=== PATIENT | male | born 1985 | race Caucasian/White ===

== ENCOUNTER 2022-07-14 08:56 | Inpatient (IN) | payer MEDICAID, SELFPAY ==
[2022-07-14] VITALS (88 sets, daily range): BP systolic 87–145; BP diastolic 25–81; PULSE 79–118; RESP 6–31; TEMP 36.4–37.2; O2SAT 95–100; BMI 21.9
--- NOTE | 2022-07-14 09:20 | CTR_ITS ---
PROCEDURE INFORMATION: Exam: CT Abdomen And Pelvis With Contrast Exam date and time: 07/14/2022 9:52 AM Age: 36 years old Clinical indication: Abdominal pain; Patient HX: Gi bleed; Additional info: Abd pain TECHNIQUE: Imaging protocol: Computed tomography of the abdomen and pelvis with contrast. Total images: 700 Radiation optimization: All CT scans at this facility use at least one of these dose optimization techniques: automated exposure control; mA and/or kV adjustment per patient size (includes targeted exams where dose is matched to clinical indication); or iterative reconstruction. Contrast material: OMNI 350; Contrast volume: 100 ml; Contrast route: INTRAVENOUS (IV); COMPARISON: No relevant prior studies available. RADIATION DOSE METRICS: Total DLP (mGy-cm): 368.83 FINDINGS: Lungs: Benign granulomatous disease of the lung is noted. Liver: Normal. No mass. Gallbladder and bile ducts: Normal. No calcified stones. No ductal dilation. Pancreas: Normal. No ductal dilation. Spleen: Normal. No splenomegaly. Adrenal glands: Normal. No mass. Kidneys and ureters: 4 mm low-density focus in the left kidney is too small to characterize but statistically favors a benign process (no further follow-up needed). Stomach and bowel: Fatty infiltration of the wall of the distal ileum is suspicious for prior recurrent/chronic inflammation. No convincing acute inflammatory process of the distal ileum. Prior Crohn's disease is conceivable. Questionable mild thickening of wall of transverse colon versus incomplete distension may represent a mild colitis either infectious or inflammatory. Appendix: No evidence of appendicitis. Intraperitoneal space: Unremarkable. No free air. No significant fluid collection. Vasculature: Incidental venous phlebolith noted. Lymph nodes: Unremarkable. No enlarged lymph nodes. Urinary bladder: Unremarkable as visualized. Reproductive: Unremarkable as visualized. Bones/joints: Intramedullary chente within the right femur partially visualized. Old right rib fracture evident. Soft tissues: Unremarkable. CT/CT abdomen pelvis w con* [id number] IMPRESSION: 1. No active GI bleed. 2. Fatty infiltration of the wall of the distal ileum is suspicious for prior recurrent/chronic inflammation. No convincing acute inflammatory process of the distal ileum. Prior Crohn's disease is conceivable. 3. Questionable mild thickening of wall of transverse colon versus incomplete distension may represent a mild colitis either infectious or inflammatory.
--- NOTE | 2022-07-14 09:22 | W.ED.GIBLEED ---
HPI - GI Bleed General: Chief complaint: GI Bleed Stated complaint: vomiting blood, rectal bleeding Time Seen by Provider: 07/14/22 09:19 Source: patient Mode of arrival: ambulatory History of Present Illness: 36-year-old male presents emergency room complaint lightheadedness dizziness generally not feeling well for the last 2 days he has had melena and increasing hematemesis this morning. He is a known heavy drinker he denies any history of esophageal varices denies any previous GI bleed. He is not on any anticoagulants. Reports having vomited some blood as well was very pale in appearance. Initial blood pressure 96/59 with fluids improved. He is mildly tachycardic. MD complaint: gross hematemesis and melena Onset (ago): hour(s) Pain Consistency: intermittent Severity: moderate Exacerbating factors: none Associated symptoms: Reports abdominal pain, malaise, nausea and poor appetite; Denies chills, easy bruising, epistaxis, fever(s), headache(s), other bleeding, rash, syncope, vomiting or weakness Review of Systems Const: Reports: malaise; Denies: fever(s) or chills ENMT: Denies: epistaxis Card: Denies: chest pain, palpitations, irregular heart rhythm, edema or syncope Resp: Denies: dyspnea, productive cough or non-productive cough GI: Reports: abdominal pain, nausea, hematemesis, change in stool character and melena; Denies: vomiting : Denies: flank pain, difficulty urinating, dysuria, urinary frequency or urinary urgency Musc: Denies: neck pain, back pain or extremity pain Skin/Breast: Denies: rash or pruritus Neuro: Denies: headache(s) Will/Lymph: Denies: easy bruising PFS ED PFSH: Medical History Alcoholism Amphetamine dependence Psychiatric care Social History Smoking and tobacco status: current every day smoker Alcohol intake: current Alcohol intake frequency: 3 or more drinks per day Physical Exam Const: COMMON NORMALS: no acute distress GENERAL APPEARANCE: cooperative and comfortable ORIENTATION/CONSCIOUSNESS: Yes awake, Yes oriented to person, Yes oriented to place and Yes oriented to time HENMT: COMMON NORMALS: normocephalic, atraumatic and hearing grossly normal bilaterally HEAD & SCALP: normocephalic and atraumatic Resp: COMMON NORMALS: normal respiratory effort, No retractions, No use of accessory muscles and clear to auscultation bilaterally AUSCULTATION: clear to auscultation bilaterally Cardio: COMMON NORMALS: regular rate, regular rhythm and No murmurs present (Cardio) RATE: regular rate RHYTHM: regular rhythm GI: COMMON NORMALS: Soft to palpation and No hepatosplenomegaly present AUSCULTATION: Yes normoactive bowel sounds PALPATION: Yes Soft to palpation, No Tenderness to palpation present (GI), No Guarding due to palpation present (GI) and Yes No hepatosplenomegaly present Extremity: COMMON NORMALS: normal to inspection, capillary refill normal, no clubbing, cyanosis or edema, no calf tenderness and no pedal edema Neuro: SENSORIUM/ORIENTATION: Yes oriented to person, Yes oriented to place and Yes oriented to time Skin: COMMON NORMALS: no rashes or lesions noted GENERAL SKIN EXAM: no rashes or lesions noted Procedures Central Line Placement Right SC: Time Out Performed: Yes Patient Placed on Monitor/Pulse Ox: Yes MD Prep: mask, gown and gloves Central Line Prep: Chlorhexidine scrub Local Anesthetic: lidocaine 1% Amount of anesthesia used (mL): 5 Ultrasound Used for Placement: Yes Central Line Lumen Inserted: triple Post Procedure: sutured in place Post Procedure X-Ray: tip of catheter in good position and no pneumothorax seen Patient Tolerated Procedure: well Complications: none Course Vital Signs: Vital signs: Vital Signs Temperature 97.6 F 07/14/22 14:10 Pulse Rate 89 07/14/22 14:10 Respiratory Rate 14 07/14/22 14:10 Blood Pressure 121/62 07/14/22 14:10 Pulse Oximetry 100 07/14/22 14:05 Oxygen Delivery Me thod 07/14/22 13:28 MDM - GI Bleed Medical Decision Making Back into theAcute upper GI bleed. Discussed with hospitalist also discussed with on-call surgery orders written. Dr. Boyer is attending. She asked me to place a central line before he could patient and place a date already taken him to the ICU went to the ICU Central line placed at the ICU under ultrasound guidance post placement film shows good positioning no sign of pneumothorax. Initial blood started in the emergency room. Further units to be given in ICU. Patient also received Protonix. Medical Records I reviewed the patient's medical records. Lab Data I reviewed the patient's lab results. : 07/14/22 09:15 07/14/22 09:15 Radiology Impressions Abdomen/Pelvis CT 07/14/22 09:20 IMPRESSION: 1. No active GI bleed. 2. Fatty infiltration of the wall of the distal ileum is suspicious for prior recurrent/chronic inflammation. No convincing acute inflammatory process of the distal ileum. Prior Crohn's disease is conceivable. 3. Questionable mild thickening of wall of transverse colon versus incomplete distension may represent a mild colitis either infectious or inflammatory. Laboratory Results WBC 22.8 10^3/uL (4.0-10.0) H 07/14/22 09:15 RBC 1.70 10^6/uL (4.1-5.3) L 07/14/22 09:15 Hgb 5.5 g/dL (11.7-16.6) L* 07/14/22 09:15 Hct 16.8 % (42.0-52.0) L* 07/14/22 09:15 MCV 98.8 fl (80-94) H 07/14/22 09:15 MCH 32.4 pg (28.0-34.0) 07/14/22 09:15 MCHC 32.7 g/dL (30.0-36.0) 07/14/22 09:15 RDW 13.2 % (12.1-15.1) 07/14/22 09:15 Plt Count 386 10^3/cmm (130-400) 07/14/22 09:15 MPV 10.3 fL (7.4-10.4) 07/14/22 09:15 Neut % (Auto) 68.0 % 07/14/22 09:15 Lymph % (Auto) 15.5 % 07/14/22 09:15 [place] % (Auto) 10.0 % 07/14/22 09:15 Eos % (Auto) 1.7 % 07/14/22 09:15 Baso % (Auto) 0.3 % 07/14/22 09:15 Neut # (Auto) 15.49 10^3/uL (1.8-7.7) H 07/14/22 09:15 Lymph # (Auto) 3.5 10^3/uL (0.8-4.8) 07/14/22 09:15 [place] # (Auto) 2.3 10^3/uL (0.2-0.9) H 07/14/22 09:15 Eos # (Auto) 0.4 10^3/uL (0.0-0.8) 07/14/22 09:15 Baso # (Auto) 0.1 10^3/uL (0.0-0.1) 07/14/22 09:15 Nucleated RBC % (auto) 0 % 07/14/22 09:15 Nucleated RBCs # 0.0 /100WBC 07/14/22 09:15 PT 14.50 SECONDS (12.1-14.9) 07/14/22 09:15 INR 1.10 (0.8-1.2) 07/14/22 09:15 APTT 27.4 SECONDS (23.9-36.7) 07/14/22 09:15 Sodium 130 mmol/L (136-145) L 07/14/22 09:15 Potassium 3.8 mmol/L (3.5-5.1) 07/14/22 09:15 Chloride 97 mmol/L (98-107) L 07/14/22 09:15 Carbon Dioxide 21 mmol/L (22-29) L 07/14/22 09:15 Anion Gap 15.8 (5-19) 07/14/22 09:15 BUN 31 mg/dL (6-20) H 07/14/22 09:15 Creatinine 0.8 mg/dL (0.7-1.2) 07/14/22 09:15 GFR Calculation 108.8 mL/min (90-130) 07/14/22 09:15 Glucose 217 mg/dL (65-115) H 07/14/22 09:15 Calculated Osmolality 283 mOsm/kg (285-295) L 07/14/22 09:15 Calcium 8.4 mg/dL (8.5-10.5) L 07/14/22 09:15 Total Bilirubin 0.2 mg/dL (0.15-1.2) 07/14/22 09:15 AST 13 U/L (0-40) 07/14/22 09:15 ALT 10 U/L (0-41) 07/14/22 09:15 Alkaline Phosphatase 52 U/L (40-130) 07/14/22 09:15 Ammonia 15 umol/L (16-60) L 07/14/22 09:15 Total Protein 5.4 g/dL (6.6-8.7) L 07/14/22 09:15 Albumin 3.2 g/dL (3.5-5.2) L 07/14/22 09:15 Globulin 2.2 g/dL (1.3-4.6) 07/14/22 09:15 Blood Type O Positive 07/14/22 09:15 Rho(D) Type Positive 07/14/22 09:15 Antibody Screen Negative 07/14/22 09:15 Crossmatch See Detail 07/14/22 09:15 Discharge Plan Discharge Patient Disposition: Admitted As Inpatient Admit Provider: Aimee Boyer Clinical Impression: GI bleed, Alcoholism Condition: Stable Coding Level of Care Code ED Accelerator Systems Director for Halie Smart
[2022-07-14] MEDS: ondansetron 2 mg/ML SDV 2 mL 4 MG IVP (09:23)
[2022-07-14] MEDS: pantoprazole 40 mg SDV 80 MG IVP (09:23)
[2022-07-14 09:39] LABS: Basophils # 0.1 10^3/uL (0.0-0.1); Basophils % 0.3 %; Eosinophils # 0.4 10^3/uL (0.0-0.8); Eosinophils % 1.7 %; Lymphocytes # 3.5 10^3/uL (0.8-4.8); Lymphocytes % 15.5 %; Mean Corpuscular HGB Conc 32.7 g/dL (30.0-36.0); Mean Corpuscular Hemoglobin 32.4 pg (28.0-34.0); Mean Corpuscular Volume 98.8 fl (80-94); Mean Platelet Volume 10.3 fL (7.4-10.4); Monocytes # 2.3 10^3/uL (0.2-0.9); Neutrophils # 15.49 10^3/uL (1.8-7.7); Nucleated Red Blood Cells % 0 %; Platelet Count 386 10^3/cmm (130-400); Red Cell Distribution Width 13.2 % (12.1-15.1); White Blood Count 22.8 10^3/uL (4.0-10.0)
[2022-07-14 09:40] LABS: Hematocrit 16.8 % (42.0-52.0); Hemoglobin 5.5 g/dL (11.7-16.6)
--- NOTE | 2022-07-14 09:43 | PC.NURSE ---
h and h was 5.5 and 16.8
[2022-07-14 09:46] LABS: Ammonia 15 umol/L (16-60)
[2022-07-14 09:55] LABS: Alanine Aminotransferase 10 U/L (0-41); Albumin Level 3.2 g/dL (3.5-5.2); Alkaline Phosphatase 52 U/L (40-130); Anion Gap 15.8 (5-19); Aspartate Amino Transferase 13 U/L (0-40); Blood Urea Nitrogen 31 mg/dL (6-20); Calcium 8.4 mg/dL (8.5-10.5); Carbon Dioxide 21 mmol/L (22-29); Chloride 97 mmol/L (98-107); Globulin 2.2 g/dL (1.3-4.6); Glomerular Filtration Rate 108.8 mL/min (90-130); Glucose 217 mg/dL (65-115); Osmolality Calculated 283 mOsm/kg (285-295); Potassium 3.8 mmol/L (3.5-5.1); Sodium 130 mmol/L (136-145); Total Bilirubin 0.2 mg/dL (0.15-1.2); Total Protein 5.4 g/dL (6.6-8.7)
[2022-07-14] MEDS: iohexol 350 mg/mL 500 mL Btl (per mL) IV (09:56)
--- NOTE | 2022-07-14 10:21 | ECG_ITS ---
[facility] Test Date: 2022-07-14 Pat Name: Renzo Mcconnell JR. 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 Measurements Intervals [place] Rate: 104 P: 70 MA: 118 QRS: 62 QRSD: 94 T: -70 QT: 346 QTc: 457 Interpretive Statements SINUS TACHYCARDIA WITH SHORT MA INTERVAL LEFT VENTRICULAR HYPERTROPHY AND ST-T CHANGE [VOLTAGE CRITERIA PLUS ST/T ABNORMALITY] No previous ECG available for comparison Electronically Signed On 07-14-2022 15:13:08 DINKEY PRESS OPERATOR by Mirela Alston M.D. [email or web address]
--- NOTE | 2022-07-14 10:25 | PM.CONSULT ---
Providers/Reason For Consult Consulting Physician/Specialty*: Juancho Cain MD Reason for Consult*: GI bleed with severe anemia Requesting Physician: Dr. Vazquez History of Present Illness History of Present Illness Mr. Renzo Mcconnell JR. is a pleasant 36 year old male presents to the emergency department with history of generalized weakness reporting melanotic stool and worsening hematemesis this morning, apparently the patient is a heavy drinker and no evidence of history of esophageal varices. And no previous episodes of bleeding and patient has not been on any anticoagulation. Further work-up in the ER showed a WBC count of 22.8, hemoglobin of 5.5 and hematocrit of 16.8, platelet count of 386. CT of the abdomen pelvis was done that did show 1. No active GI bleed. 2. Fatty infiltration of the wall of the distal ileum is suspicious for prior recurrent/chronic inflammation. No convincing acute inflammatory process of the distal ileum. Prior Crohn's disease is conceivable. 3. Questionable mild thickening of wall of transverse colon versus incomplete distension may represent a mild colitis either infectious or inflammatory. General surgery was consulted for further evaluation potential endoscopic intervention, patient will be admitted to the hospitalist service meanwhile. Patient was seen and evaluated in the ED room #5 Review of Systems General: Reports: 10 or more systems reviewed and unremarkable except in HPI and below Medications/Allergies Home Medications Medication Instructions Recorded Confirmed Last Taken Type omeprazole 20 mg capsule,delayed 20 mg PO DAILY 8 weeks #60 caps 07/11/22 07/14/22 07/13/22 Rx release cetirizine 10 mg tablet 10 mg PO DAILY PRN Allergy Symptoms 07/14/22 07/14/22 07/13/22 History Allergies Allergy/AdvReac Type Severity Reaction Status Date / Time No Known Allergies Allergy Unverified 07/11/22 16:48 PFSH Acute PFSH: Medical History Psychiatric care Vitals/I&O/Wt Last Vital Signs Temp 98 F 07/14/22 09:10 Pulse 107 H 07/14/22 09:10 Resp 16 07/14/22 09:10 BP 96/59 07/14/22 09:10 Pulse Ox 99 07/14/22 09:10 O2 Del Method 07/14/22 09:10 Weight last 48 hrs Weight 140 lb Physical Exam Const: COMMON NORMALS: patient oriented x3; apparent distress (Mild to moderate distress/quite pale) GENERAL APPEARANCE: cooperative ORIENTATION/CONSCIOUSNESS: Yes awake, Yes oriented to person, Yes oriented to place and Yes oriented to time HENMT: COMMON NORMALS: normocephalic HEAD & SCALP: normocephalic Eye: COMMON NORMALS: Equal, round and reactive pupils present, conjunctivae normal (No icterus) and no scleral icterus CONJUNCTIVA: Yes conjunctivae normal (No icterus) PUPIL: Yes Equal, round and reactive pupils present Lymph: LYMPHATIC: no lymphadenopathy noted Chest: COMMONS NORMALS: normal inspection of the chest Resp: COMMON NORMALS: normal respiratory effort and clear to auscultation bilaterally AUSCULTATION: clear to auscultation bilaterally Cardio: COMMON NORMALS: S1 normal heart sound present and S2 normal heart sound present; negative for No murmurs present (Cardio) HEART SOUNDS: S1 normal heart sound present and S2 normal heart sound present GI: COMMON NORMALS: Soft to palpation; negative for No hepatosplenomegaly present INSPECTION: Yes normal to inspection PALPATION: Yes Soft to palpation, No Firmness to palpation present (GI), No Tenderness to palpation present (GI), No Guarding due to palpation present (GI), No Rigid due to palpation and No No hepatosplenomegaly present Neuro: COMMON NORMALS: patient oriented x3 SENSORIUM/ORIENTATION: Yes oriented to person, Yes oriented to place and Yes oriented to time Psych: COMMON NORMALS: mental status grossly normal Skin: COMMON NORMALS: no rashes or lesions noted GENERAL SKIN EXAM: no rashes or lesions noted Data : 07/14/22 09:15 07/14/22 09:15 A&P Assessment and plan (1) GI bleed: Plan of care; After thorough history and physical examination and reviewing the chart and images with my personal interpretation, plan to perform a diagnostic esophagogastroduodenoscopy with possible biopsy in the GI lab. Once patient is medically appropriate and resuscitated. I discussed with the patient in detail the risk,benefits,alternatives and indications.The risk of aspiration, bleeding, soft tissue injury, perforation of the stomach/esophagus and other potential concomitant complications were explained to the patient in details,aslo the potential need for Thoracic and or Abdominal surgery to repair any complications.The patient understood this well and did agree to proceed. Rationale was carefully and clearly discussed with the patient.Appropriate informed consent have been reviewed and signed All questions have been answered and all concerns have been addressed to patient's satisfaction. Blood transfusion per protocol Correction of coagulopathy, INR, PT and PTT were requested ICU for closer observation H&H every 6 hours Assurance and education All questions have been answered and all concerns have been addressed to patient's satisfaction. Consult Attestations Medical Necessity Statement: Per admitting service Time Spent in Patient Care: 16 - 35 minutes Coding Level of Care Code Acute Auto Bumper Straightener for g Fwd Diagnoses GI bleed K92.2
[2022-07-14 10:39] LABS: Partial Thromboplastin Time 27.4 SECONDS (23.9-36.7)
--- NOTE | 2022-07-14 12:03 | P.HP_ITS ---
Providers/Chief Complaint Chief Complaint: vomiting blood, rectal bleeding History of Present Illness Renzo Mcconnell JR. is a 36 year old male with past medical history of femur fracture last year July status post chente placement, nicotine dependence, alcohol abuse presented to the hospital today after having bloody bowel movement and vomiting dark material as per patient. He describes his stools as dark black and also had hematemesis. He says he drinks alcohol about a pint a day and his last drink was 4 days ago. He also smokes 1 pack/day of cigarettes daily. He states for the last few days he has been having nausea and lightheadedness and is also had syncope on various occasions especially after using the bathroom. Denies hitting his head anywhere. Girlfriend present at bedside. He says after his femur fracture last year he has been taking ibuprofen and jxhs-[id number] pain medications from time to time but in the past few weeks has not taken any. He does take omeprazole at home. He does report a subjective fever at home however did not check with a thermometer. Denies any other recent illness or being around any sick ill contacts. Denies chest pain, shortness of breath. ED course: CT abdomen pelvis did not show active GI bleed. Showed fatty inf iltration of wall of distal ileum suspicious for recurrent chronic inflammation. No convincing acute inflammatory process of distal ileum. Prior records disease is conceivable. Questionable mild thickening of wall of transverse colon versus incomplete distention representing mild colitis either infectious or inflammatory. Blood pressure 121/62, respirate 14, pulse 89, temperature 97.6. Patient given IV protonic's and 2 units packed RBC ordered. Central line placed by ER doctor upon my request. Medications/Allergies Home Medications Medication Instructions Recorded Confirmed Last Taken Type omeprazole 20 mg capsule,delayed 20 mg PO DAILY 8 weeks #60 caps 07/11/22 07/14/22 07/13/22 Rx release cetirizine 10 mg tablet 10 mg PO DAILY PRN Allergy Symptoms 07/14/22 07/14/22 07/13/22 History Allergies Allergy/AdvReac Type Severity Reaction Status Date / Time No Known Allergies Allergy Unverified 07/11/22 16:48 PFSH Acute PFSH: Medical History Alcoholism Amphetamine dependence Psychiatric care Social History Smoking and tobacco status: current every day smoker Alcohol intake: current Alcohol intake frequency: 3 or more drinks per day Vitals/I&O/Wt Last Vital Signs Temp 98.2 F 07/14/22 10:40 Pulse 107 H 07/14/22 10:40 Resp 18 07/14/22 10:40 BP 118/70 07/14/22 10:40 Pulse Ox 100 07/14/22 10:40 O2 Del Method 07/14/22 09:10 07/13/22 07/14/22 07/14/22 22:59 06:59 14:59 Intake Total 0 / 0 Balance 0 / 0 Weight last 48 hrs Weight 63.503 kg Physical Exam Narrative: General: Alert oriented x3, patient seen sitting up in bed ICU 6 HEENT: Normocephalic, atraumatic, EOMI, breathing normally, missing some teeth Cardio: Regular rate rhythm, normal S1-S2, no murmurs Respiratory: Good bilateral air entry, no wheezes no rhonchi appreciated GI: Abdomen soft, nontender, nondistended, bowel sounds + Behavior: Appropriate and cooperative Extremities: Pulses 2+, no edema, no cyanosis Data : 07/14/22 15:11 07/14/22 15:11 A&P Assessment and plan (1) Alcoholism: (2) GI bleed: Plan #Upper GI Bleed #Melanotic stools and hematemasis #Femur fracture status post chente placement July 2021 #Alcohol abuse #Nicotine dependence ? Transfuse goal less than 7 ? Patient status post 2 units packed RBC. Will check postinfusion CBC thereafter ? Order 1 unit FFP and platelet on hold. Will transfuse with ratio of 3:1:1 - Monitor for alcohol withdrawal. His last drink was 4 days ago however drinks 1 pint per day. ? I will not started on CIWA protocol at this time and monitor patient for now. ? N.p.o. except ice chips ? Continue Protonix 40 IV twice daily ? Plan for EGD in a.m. ? Check hepatitis panel, lipid profile ? Placed on ceftriaxone 2 g daily - Continue to check H&H every 8 hours ? Discussed case with RN, general surgery, girlfriend at bedside - Central line placed by ER doctor upon my request. - Continue on normal saline 100 cc/h ? I will stop D5 half-normal fluids. Patient also got 2 L normal saline bolus in ER. - Check drug screen Full code Due to prophylaxis: SCDs Attestations Medical Necessity Statement*: Admit inpatient and expected to cross greater than 2 midnight stay for management of upper GI bleed. Coding Level of Care Code Acute Computer Forensics Investigator for Halie Smart Diagnoses Alcoholism F10.20 GI bleed K92.2
[2022-07-14 13:28] LABS: Add Urine Microscopic? YES; Bilirubin Urine Neg (Negative); Blood Urine Neg (Negative); Glucose Urine UA Norm (Normal); Ketones Urine Negative (Negative); Leukocyte Esterase Urine Negative (Negative); Nitrate Urine Negative (Negative); Protein Urine Trace (Negative); Urine Appearance Clear (CLEAR); Urine Color Yellow (Yellow); Urobilinogen Urine Norm (Negative); pH Urine 5 (5-7)
[2022-07-14 13:29] LABS: Add Urine Culture? No; Bacteria Urine TRACE /hpf; WBC Urine 0-4 /hpf (0-5)
[2022-07-14] MEDS: cefTRIAXone 2,000 MG in sodium chloride 0.9% (plus) 50 ML 100 MG IV (14:14)
[2022-07-14] MEDS: D5-NS 0.45% + KCL 20 mEq 20 MEQ/1,000 ML BAG 100 MEQ IV (14:15)
--- NOTE | 2022-07-14 14:26 | XRR_ITS ---
PROCEDURE INFORMATION: Exam: XR Chest Exam date and time: 07/14/2022 3:38 PM Age: 36 years old Clinical indication: Device placement; Picc; Additional info: Central line placement TECHNIQUE: Imaging protocol: Radiologic exam of the chest. Views: 1 view. COMPARISON: CT abdomen pelvis w con* [id number] 07/14/2022 9:52 AM FINDINGS: Tubes, catheters and devices: Right central line tip over the proximal right atrium. Lungs: Unremarkable. No consolidation. Pleural spaces: Unremarkable. No pleural effusion. No pneumothorax. Heart/Mediastinum: Unremarkable. No cardiomegaly. Bones/joints: Unremarkable. XR/XR chest 1V portable [id number] IMPRESSION: Right central line tip over the proximal right atrium.
[2022-07-14 15:18] LABS: Basophils # 0.1 10^3/uL (0.0-0.1); Basophils % 0.3 %; Eosinophils # 0.1 10^3/uL (0.0-0.8); Eosinophils % 0.6 %; Hemoglobin 6.6 g/dL (11.7-16.6); Lymphocytes # 2.1 10^3/uL (0.8-4.8); Lymphocytes % 13.1 %; Mean Corpuscular HGB Conc 33.5 g/dL (30.0-36.0); Mean Corpuscular Hemoglobin 30.6 pg (28.0-34.0); Mean Corpuscular Volume 91.2 fl (80-94); Mean Platelet Volume 10.4 fL (7.4-10.4); Monocytes # 1.2 10^3/uL (0.2-0.9); Monocytes % 7.8 %; Neutrophils # 11.93 10^3/uL (1.8-7.7); Neutrophils % 75.5 %; Nucleated Red Blood Cells % 0 %; Platelet Count 222 10^3/cmm (130-400); Red Blood Count 2.16 10^6/uL (4.1-5.3); Red Cell Distribution Width 15.8 % (12.1-15.1); White Blood Count 15.8 10^3/uL (4.0-10.0)
[2022-07-14 15:22] LABS: Hematocrit 19.7 % (42.0-52.0)
[2022-07-14 15:38] LABS: Anion Gap 11.4 (5-19); Blood Urea Nitrogen 22 mg/dL (6-20); Calcium 7.7 mg/dL (8.5-10.5); Carbon Dioxide 23 mmol/L (22-29); Chloride 99 mmol/L (98-107); Glomerular Filtration Rate 151.6 mL/min (90-130); Glucose 112 mg/dL (65-115); Osmolality Calculated 272 mOsm/kg (285-295); Potassium 4.4 mmol/L (3.5-5.1); Sodium 129 mmol/L (136-145)
[2022-07-14] MEDS: sodium chloride 0.9% 1,000 ML 100 ML IV (18:26)
[2022-07-14] MEDS: sodium chloride 0.9% (100 ml) 100 ML (18:27)
[2022-07-14 18:36] LABS: Amphetamines Screen Urine Negative (Negative); Barbiturates Screen Urine Negative (Negative); Benzodiazepines Screen Urine Negative (Negative); Cocaine Screen Urine Negative (Negative); Opiate Screen Urine Negative (Negative); PCP Screen Urine Negative (Negative); THC Screen Urine Positive (Negative)
[2022-07-14] MEDS: pantoprazole 40 mg SDV IVP (20:08)
[2022-07-14 20:19] LABS: Chol HDL Ratio 4.75 mg/dL (1.0-5.00); Cholesterol 114 mg/dL (0-200); HDL Cholesterol 24 mg/dL (60-100); LDL Cholesterol Calculated 60 mg/dL (50-129); Triglycerides 148 mg/dL (0-150)
[2022-07-14 21:14] LABS: Glucose Point of Care 125 mg/dL (70-110)
[2022-07-14 21:18] LABS: Hemoglobin 6.6 g/dL (11.7-16.6)
[2022-07-14 21:22] LABS: Hematocrit 19.6 % (42.0-52.0)
[2022-07-14 22:55] LABS: Hepatitis A Antibody IgM Non-Reactive (Nonreactive); Hepatitis B Core AB, Total Non-Reactive (Nonreactive); Hepatitis B Surface AB 3.5 (11.5-1000); Hepatitis B Surface Antigen Non-Reactive (Nonreactive); Hepatitis C Virus Antibody Non-Reactive (Nonreactive)
[2022-07-14] MEDS: diphenhydrAMINE 50 mg/mL SDV 1mL 25 MG IVP ×2 (22:57→23:39)
--- NOTE | 2022-07-14 23:15 | XRR_ITS ---
PROCEDURE INFORMATION: Exam: XR Chest Exam date and time: 07/15/2022 12:26 AM Age: 36 years old Clinical indication: Other: Hives; Additional info: Urticaria w transfusion TECHNIQUE: Imaging protocol: Radiologic exam of the chest. Views: 1 view. COMPARISON: CR (CHEST, ) 07/14/2022 3:38 PM FINDINGS: Tubes, catheters and devices: Stable right central line with tip over the proximal right atrium. Lungs: Unremarkable. No consolidation. Pleural spaces: Unremarkable. No pleural effusion. No pneumothorax. Heart/Mediastinum: Unremarkable. No cardiomegaly. Bones/joints: Unremarkable. XR/XR chest 1V portable [id number] IMPRESSION: Stable right central line with tip over the proximal right atrium.
[2022-07-14] MEDS: famotidine 20 mg/2 mL INJ IVP (23:39)
[2022-07-15] VITALS (101 sets, daily range): BP systolic 92–151; BP diastolic 50–88; PULSE 63–97; RESP 14–30; TEMP 36.3–36.8; O2SAT 87–100; BMI 23.3
[2022-07-15] MEDS: sodium chloride 0.9% (100 ml) 100 ML 10 ML ×2 (01:17→04:43)
[2022-07-15] MEDS: sodium chloride 0.9% 1,000 ML 100 ML IV ×2 (04:42→19:36)
[2022-07-15 05:20] LABS: Glucose Point of Care 112 mg/dL (70-110)
[2022-07-15 05:30] LABS: Basophils % 0.4 %; Eosinophils # 0.4 10^3/uL (0.0-0.8); Eosinophils % 3.9 %; Hemoglobin 6.9 g/dL (11.7-16.6); Lymphocytes # 2.1 10^3/uL (0.8-4.8); Lymphocytes % 22.5 %; Mean Corpuscular HGB Conc 33.3 g/dL (30.0-36.0); Mean Corpuscular Hemoglobin 30.3 pg (28.0-34.0); Mean Corpuscular Volume 90.8 fl (80-94); Mean Platelet Volume 10.2 fL (7.4-10.4); Monocytes # 0.9 10^3/uL (0.2-0.9); Monocytes % 10.1 %; Neutrophils % 61.5 %; Nucleated Red Blood Cells % 0 %; Platelet Count 186 10^3/cmm (130-400); Red Blood Count 2.28 10^6/uL (4.1-5.3); Red Cell Distribution Width 15.9 % (12.1-15.1); White Blood Count 9.1 10^3/uL (4.0-10.0)
[2022-07-15 05:39] LABS: Hematocrit 20.7 % (42.0-52.0)
[2022-07-15 05:58] LABS: Anion Gap 6.6 (5-19); Blood Urea Nitrogen 17 mg/dL (6-20); Calcium 7.6 mg/dL (8.5-10.5); Carbon Dioxide 25 mmol/L (22-29); Chloride 99 mmol/L (98-107); Glomerular Filtration Rate 151.6 mL/min (90-130); Glucose 101 mg/dL (65-115); Magnesium 1.9 mg/dL (1.7-2.3); Osmolality Calculated 266 mOsm/kg (285-295); Potassium 3.6 mmol/L (3.5-5.1); Sodium 127 mmol/L (136-145)
--- NOTE | 2022-07-15 06:29 | PC.NURSE ---
Patient receiving platelets without any reactions. platelets stopped at 2240. patient calls nurse back into room a few minutes later stating he is itching. MD Miguel called at 2244 to report itching, no hives, temp changes, redness or vital changes and request medication. Benadryl given at 2257 hives noticed on bilateral armpits, chest, back and bilateral legs. 2306 MD notified of hives. 2326 pt complains of itching still, hives still noted and redness (md informed) new orders for Benadryl and pepcid, which was given at 2339. 0015 no more itching, redness or hives
--- NOTE | 2022-07-15 06:49 | P.PN_ITS ---
Subjective Subjective: Patient overall feels better. No evidence of hematemesis or melanotic stool. Vital signs are stable. Received 5 units of packed RBCs with a current hemoglobin of 6.9 and hematocrit 20.7 which is concerning for ongoing oozing. Or perhaps underlying hemolytic component. Marginal urine output 300 mL overnight. Calculated MELD score 7 points with estimated 3-month mortality 1.9% Vitals/I&O/Wt Last Vital Signs Temp 98.3 F 07/15/22 06:39 Pulse 85 07/15/22 06:39 Resp 21 H 07/15/22 06:39 BP 115/74 07/15/22 06:39 Pulse Ox 99 07/15/22 06:39 O2 Del Method 07/14/22 19:30 07/14/22 07/14/22 07/15/22 14:59 22:59 06:59 Intake Total 400 / 400 1052 / 1452 1622 / 3074 Output Total 450 / 450 70 / 520 Balance 400 / 400 602 / 1002 1552 / 2554 Weight last 48 hrs Weight 148 lb 9.6 oz Weight 140 lb Physical Exam Narrative: Patient is conscious alert oriented X3 No apparent distress BMI 23.3 Head and neck examination PERRLA no masses no cervical lymphadenopathy no jaundice Abdomen nontender nondistended soft no organomegaly guarding or rigidity/no signs of peritonitis Extremities no cyanosis no clubbing no edema Data : 07/15/22 05:15 07/15/22 05:15 A&P Assessment and plan (1) GI bleed: Plan of care; Plan to perform diagnostic EGD today and GI lab. Informed consent per chart Assurance and education All questions have been answered and all concerns have been addressed to patient's satisfaction. 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
--- NOTE | 2022-07-15 07:33 | ANES.PREANE2 ---
Pre-Anesthetic Assessment Height/Weight: Height 1.7 m Weight 67.404 kg Temp Pulse Resp BP Pulse Ox O2 Del Method 97.6 F 85 19 H 119/74 99 07/15/22 06:59 07/15/22 06:59 07/15/22 06:59 07/15/22 06:59 07/15/22 06:59 07/14/22 19:30 Preop Diagnosis: GI Bleed Operation Date: 07/15/22 08:00 Proposed Procedures p EGD(Not Applicable) - Juancho Cain MD Familial anesthetic complications: None Was Beta Andria taken within 24 hours: N/A Was Clonidine taken within 24 hours: N/A Last intake: Ice chips yesterday. NPO since midnight. Social Alcohol (1 pint of vodka daily) and Tobacco 1 pack(s) per day Exam alert, oriented x 3, clear to auscultation bilaterally and regular rate & rhythm Airway Submandibular: within normal limits Cervical ROM: within normal limits Mallampati: Class II Dentition: chipped and loose Comments: Comments: Several missing, loose, chipped teeth. Poor dentition History/ROS No significant history except as noted and No significant complaints Pulmonary Chronic Obstructive Pulmonary Disease, Cough and Exertional Dyspnea Seasonal allergies CV/HEM None reported None reported GI Gastroesophageal Reflux Disease and Peptic Ulcer Disease Metabolic None reported Musc/skel Lower Back Pain Neuropsych Syncope Anesthetic Plan ASA status: 3 Anesthesia: Anesthesia Evaluation, General and MAC Risk of > 500 ml blood loss (7ml/kg in children): No Medications/Allergies Home Medications Medication Instructions Recorded Confirmed Last Taken Type omeprazole 20 mg capsule,delayed 20 mg PO DAILY 8 weeks #60 caps 07/11/22 07/14/22 07/13/22 Rx release cetirizine 10 mg tablet 10 mg PO DAILY PRN Allergy Symptoms 07/14/22 07/14/22 07/13/22 History Allergies Allergy/AdvReac Type Severity Reaction Status Date / Time Platelets Allergy Mild ALGY-Hives Uncoded 07/14/22 23:11 Current Medications Generic Name Dose Route Start Last Admin Trade Name Freq PRN Reason Stop Dose Admin Diphenhydramine HCl 25 mg 07/14/22 22:45 07/14/22 22:57 Diphenhydramine 50 Mg/Ml Sdv 1ml IVP 25 mg Q6H PRN Administration ITCHING Ceftriaxone Sodium 2,000 mg/ 50 mls @ 100 mls/hr 07/14/22 12:30 07/14/22 14:44 Sodium Chloride IV Infused Q24H ALVARADO Infusion Protocol Sodium Chloride 1,000 mls @ 100 mls/hr 07/14/22 17:30 07/15/22 04:42 Sodium Chloride 0.9% IV 100 mls/hr .Q10H ALVARADO Administration Pantoprazole Sodium 40 mg 07/14/22 21:00 07/14/22 20:08 Pantoprazole 40 Mg Sdv IVP 40 mg Q12H ALVARADO Administration PFSH Anesthesia Medical History Alcoholism Amphetamine dependence Psychiatric care Social History Smoking and tobacco status: current every day smoker Alcohol intake: current Alcohol intake frequency: 3 or more drinks per day Data Anesthesia : 07/15/22 05:15 07/15/22 05:15 Short CBC 07/14/22 07/14/22 07/14/22 Range/Units 09:15 15:11 21:10 WBC 22.8 H 15.8 H (4.0-10.0) 10^3/uL Hgb 5.5 L* 6.6 L 6.6 L (11.7-16.6) g/dL Hct 16.8 L* 19.7 L* 19.6 L* (42.0-52.0) % MCV 98.8 H 91.2 D (80-94) fl Plt Count 386 222 D (130-400) 10^3/cmm Neut % (Auto) 68.0 75.5 % Neut # (Auto) 15.49 H 11.93 H (1.8-7.7) 10^3/uL 07/15/22 Range/Units 05:15 WBC 9.1 (4.0-10.0) 10^3/uL Hgb 6.9 L (11.7-16.6) g/dL Hct 20.7 L* (42.0-52.0) % MCV 90.8 (80-94) fl Plt Count 186 (130-400) 10^3/cmm Neut % (Auto) 61.5 % Neut # (Auto) 5.60 (1.8-7.7) 10^3/uL BMP 07/14/22 07/14/22 07/15/22 09:15 15:11 05:15 Sodium 130 L 129 L 127 L Potassium 3.8 4.4 3.6 Chloride 97 L 99 99 Carbon Dioxide 21 L 23 25 BUN 31 H 22 H 17 Creatinine 0.8 0.6 L 0.6 L Glucose 217 H 112 101 Calcium 8.4 L 7.7 L 7.6 L Liver Function 07/14/22 Range/Units 09:15 Total Bilirubin 0.2 (0.15-1.2) mg/dL AST 13 (0-40) U/L ALT 10 (0-41) U/L Alkaline Phosphatase 52 (40-130) U/L Albumin 3.2 L (3.5-5.2) g/dL Urine 07/14/22 Range/Units 12:52 Urine Color Yellow (Yellow) Urine Appearance Clear (CLEAR) Urine pH 5 (5-7) Ur Specific Tensed 1.020 (1.005-1.030) Urine Protein Trace (Negative) Urine Glucose (UA) Norm (Normal) Urine Ketones Negative (Negative) Urine Nitrate Negative (Negative) Urine Bilirubin Neg (Negative) Ur Leukocyte Esterase Negative (Negative) Urine RBC None (0-2) /hpf Urine WBC 0-4 H (0-5) /hpf Blood Bank 07/14/22 09:15 Blood Type O Positive Rho(D) Type Positive Antibody Screen Negative Coags 07/14/22 09:15 PT 14.50 INR 1.10 APTT 27.4 Cardiac Studies: No Data to Display
[2022-07-15] MEDS: sodium chloride 0.9% 1,000 ML 30 ML IV (08:00)
[2022-07-15] MEDS: EPINEPHrine 1 mg/mL INJ XX (08:20)
--- NOTE | 2022-07-15 08:55 | ANE.PACU2 ---
Inpatient post-anesthesia follow up: Airway intact: Yes Vital signs: Temperature 97.3 F Pulse Rate 80 Respiratory Rate 16 Blood Pressure 126/84 Pulse Oximetry 99 Oxygen Delivery Me thod [ Room Air Current Rate & Del gadiel] Oxygen Delivery Me thod Room Air Oxygen Flow Rate Fraction of Inspir ed Oxygen Hydration adequate: Yes Nausea and vomiting: No Pain level: 1 Mental status: Baseline
[2022-07-15] MEDS: pantoprazole 40 mg SDV IVP ×2 (09:35→20:33)
--- NOTE | 2022-07-15 11:31 | PM.PN ---
Subjective Subjective: Seen this AM. Overnight patient received 2 more units of blood. Total 5 units RBCs given. He also had a unit of platelets with possible hemolytic reaction. He was given Benadryl. Patient states he feels a lot better and doing well at this time. Went for EGD this morning. Official report pending but it has been reported that a toothpick was found in second part of duodenum causing ulceration and bleeding. Vitals/I&O/Wt Last Vital Signs Temp 97.3 F L 07/15/22 07:58 Pulse 74 07/15/22 10:00 Resp 17 07/15/22 10:00 BP 117/67 07/15/22 10:00 Pulse Ox 100 07/15/22 10:00 O2 Del Method 07/15/22 09:18 07/14/22 07/15/22 07/15/22 22:59 06:59 14:59 Intake Total 1052 / 1452 1622 / 3074 600 / 600 Output Total 450 / 450 70 / 520 825 / 825 Balance 602 / 1002 1552 / 2554 -225 / -225 Weight last 48 hrs Weight 67.404 kg Weight 63.503 kg Physical Exam Narrative: General: Alert oriented x3, patient seen sitting up in bed ICU 6 HEENT: Normocephalic, atraumatic, EOMI, breathing normally, missing some teeth Cardio: Regular rate rhythm, normal S1-S2, no murmurs Respiratory: Good bilateral air entry, no wheezes no rhonchi appreciated GI: Abdomen soft, nontender, nondistended, bowel sounds + Behavior: Appropriate and cooperative Extremities: Pulses 2+, no edema, no cyanosis Data : 07/15/22 05:15 07/15/22 05:15 A&P Assessment and plan (1) Alcoholism: (2) GI bleed: Plan #Upper GI Bleed #Melanotic stools and hematemasis #Femur fracture status post chente placement July 2021 #Alcohol abuse #Nicotine dependence ? Transfuse goal less than 7 ? Recheck H&H every 12 hours. ? Protonix 40 twice daily ? Sucralfate 4 times daily ? Clear liquids okayed by general surgery. - Monitor for alcohol withdrawal. His last drink was 4 days ago however drinks 1 pint per day. ? I will not started on CIWA protocol at this time and monitor patient for now. ? Check hepatitis panel, lipid profile ? Placed on ceftriaxone 2 g daily. Will DC at this time ? Discussed case with RN, general surgery, girlfriend at bedside - Continue on normal saline 100 cc/h ? Possibly transfer to floor today. Full code Due to prophylaxis: SCDs Attestations Medical Necessity Statement*: Admit inpatient and expected to cross greater than 2 midnight stay for management of upper GI bleed. 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
[2022-07-15] MEDS: cefTRIAXone 2,000 MG in sodium chloride 0.9% (plus) 50 ML 100 MG IV (12:44)
[2022-07-15 13:46] LABS: Basophils % 0.3 %; Eosinophils # 0.3 10^3/uL (0.0-0.8); Eosinophils % 2.4 %; Hematocrit 23.5 % (42.0-52.0); Lymphocytes # 1.4 10^3/uL (0.8-4.8); Lymphocytes % 10.2 %; Mean Corpuscular Hemoglobin 31.1 pg (28.0-34.0); Mean Corpuscular Volume 91.4 fl (80-94); Mean Platelet Volume 9.9 fL (7.4-10.4); Monocytes # 0.8 10^3/uL (0.2-0.9); Neutrophils # 11.16 10^3/uL (1.8-7.7); Neutrophils % 79.9 %; Nucleated Red Blood Cells % 0.1 %; Platelet Count 193 10^3/cmm (130-400); Red Blood Count 2.57 10^6/uL (4.1-5.3); Red Cell Distribution Width 15.8 % (12.1-15.1)
[2022-07-15] MEDS: sucralfate 1 gm Tablet PO ×2 (17:12→20:33)
[2022-07-15] MEDS: diphenhydrAMINE 25 mg Capsule PO ×2 (17:12→17:14)
[2022-07-15 20:59] LABS: Hemoglobin 7.6 g/dL (11.7-16.6)
[2022-07-16] VITALS (80 sets, daily range): BP systolic 108–148; BP diastolic 62–93; PULSE 62–113; RESP 15–29; TEMP 36.4–36.6; O2SAT 90–100
[2022-07-16 03:41] LABS: Basophils % 0.2 %; Eosinophils # 0.4 10^3/uL (0.0-0.8); Eosinophils % 4.6 %; Hematocrit 22.9 % (42.0-52.0); Hemoglobin 7.8 g/dL (11.7-16.6); Lymphocytes # 1.8 10^3/uL (0.8-4.8); Lymphocytes % 19.9 %; Mean Corpuscular HGB Conc 34.1 g/dL (30.0-36.0); Mean Corpuscular Hemoglobin 31.2 pg (28.0-34.0); Mean Corpuscular Volume 91.6 fl (80-94); Mean Platelet Volume 10.4 fL (7.4-10.4); Monocytes # 0.9 10^3/uL (0.2-0.9); Monocytes % 10.1 %; Neutrophils # 5.75 10^3/uL (1.8-7.7); Neutrophils % 63.9 %; Nucleated Red Blood Cells % 0.2 %; Platelet Count 193 10^3/cmm (130-400); Red Cell Distribution Width 15.7 % (12.1-15.1)
[2022-07-16 04:11] LABS: Anion Gap 7.6 (5-19); Blood Urea Nitrogen 9 mg/dL (6-20); Calcium 8.1 mg/dL (8.5-10.5); Carbon Dioxide 28 mmol/L (22-29); Chloride 100 mmol/L (98-107); Glomerular Filtration Rate 151.6 mL/min (90-130); Glucose 97 mg/dL (65-115); Osmolality Calculated 273 mOsm/kg (285-295); Potassium 3.6 mmol/L (3.5-5.1); Sodium 132 mmol/L (136-145)
[2022-07-16] MEDS: sodium chloride 0.9% 1,000 ML 100 ML IV (05:19)
[2022-07-16] MEDS: sucralfate 1 gm Tablet PO ×4 (06:22→20:59)
--- NOTE | 2022-07-16 06:52 | PM.PN ---
Subjective Subjective: Patient seems to be doing well. Tolerating p.o. intake. Stable H&H Medications: Reviewed: Yes Vitals/I&O/Wt Last Vital Signs Temp 97.5 F L 07/16/22 04:00 Pulse 78 07/16/22 06:30 Resp 17 07/16/22 06:30 BP 116/81 07/16/22 06:30 Pulse Ox 98 07/16/22 06:30 O2 Del Method 07/15/22 09:18 07/15/22 07/15/22 07/16/22 14:59 22:59 06:59 Intake Total 1190 / 1190 1875 / 3065 2971.667 / 6036.667 Output Total 1000 / 1000 3025 / 4025 1700 / 5725 Balance 190 / 190 -1150 / -960 1271.667 / 311.667 Weight last 48 hrs Weight 148 lb 9.6 oz Weight 140 lb Physical Exam Narrative: Patient is conscious alert oriented X3 No apparent distress BMI 23.3 Head and neck examination PERRLA no masses no cervical lymphadenopathy no jaundice Abdomen nontender nondistended soft no organomegaly guarding or rigidity/no signs of peritonitis Extremities no cyanosis no clubbing no edema Data : 07/16/22 03:06 07/16/22 03:06 A&P Assessment and plan (1) GI bleed: Assessment 36 years old gentleman status post EGD and was found to have traumatic ulcer of the second part of the duodenum that was removed. And epinephrine was injected. Plan From surgical standpoint of view can advance to full liquid diet Patient can be transferred to the floor Patient should follow-up as an outpatient to repeat EGD in 6 to 8 weeks Continue PPI and Carafate Assurance and education All questions have been answered and all concerns have been addressed to patient's satisfaction. 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
[2022-07-16] MEDS: pantoprazole 40 mg SDV IVP ×2 (09:14→20:58)
--- NOTE | 2022-07-16 11:54 | PC.CHAP ---
Pastoral Care Encounter/Spiritual Assessment Type of Contact [] Declined fire warden visit [] Patient/Family/Request visit [] Outpatient visit [] Follow-up visit [] Physician referral [] Code/Alert [x] Routine visit [] Staff referral [] Actively dying [x] Patient sleeping [] Family support [] [] Out of room [] Palliative care [] [] Receiving care in room [] Pre-surgical visit [] Trauma [] Long length of stay [x] ICU visit [] Other: Relational/Emotional Strength [] Patient feels connected with others/family/visitors/staff [] Distress [] Loneliness/isolation [] Abandonment Spirituality of Patient [] Person of Laura [] Attends Buddhist of their Laura [] Believes in Prayer [] Reads Bible or Mormonism materials [] There are Spiritual issues to be addressed Dice Dealer Interventions [x] Prayer [] Active listening [] Non-anxious presence [] Spiritual/emotional support [] Crisis/trauma care [] Spiritual counseling [] Bereavement support [] Provided bereavement packet [] Provided Bible/devotional materials [] Provided toy/stuffed animal, coloring book to patient or family member [] Provided Communion [] Anointing/[place] [] Salvation [x] Completed spiritual assessment [] Other: Impact on Illness or Injury [] Angry [] Fearful [] Anxious [] Often cries [] Exhaustion [] Unable to work [] Unable to attend zoroastrianism [] Unable to walk/stand [] Unable to read [] Unable to drive [] Unable to eat/drink [] Unable to sleep [] Unable to be with family [] Patient intubated [] Other: Summary Time spent with patient
[2022-07-16] MEDS: cefTRIAXone 2,000 MG in sodium chloride 0.9% (plus) 50 ML 100 MG IV (12:08)
--- NOTE | 2022-07-16 12:44 | P.PN_ITS ---
Subjective Subjective: patient was seen this morning, he is doing well no bloody or black stools, no lightheadedness, [place] no abdominal pain complaints Vitals/I&O/Wt Last Vital Signs Temp 97.5 F L 07/16/22 04:00 Pulse 91 07/16/22 12:00 Resp 18 07/16/22 12:00 BP 125/78 07/16/22 12:00 Pulse Ox 97 07/16/22 12:00 O2 Del Method 07/15/22 09:18 07/15/22 07/16/22 07/16/22 22:59 06:59 14:59 Intake Total 1875 / 3065 2971.667 / 6036.667 680 / 680 Output Total 3025 / 4025 1700 / 5725 1425 / 1425 Balance -1150 / -960 1271.667 / 311.667 -745 / -745 Weight last 48 hrs Weight 67.404 kg Physical Exam Const: COMMON NORMALS: no acute distress and patient oriented x3 HENMT: COMMON NORMALS: normocephalic HEAD & SCALP: normocephalic Resp: COMMON NORMALS: normal respiratory effort, No retractions, No use of accessory muscles and clear to auscultation bilaterally AUSCULTATION: clear to auscultation bilaterally Cardio: COMMON NORMALS: regular rate, regular rhythm, S1 normal heart sound present and S2 normal heart sound present RATE: regular rate RHYTHM: regular rhythm HEART SOUNDS: S1 normal heart sound present and S2 normal heart sound present GI: COMMON NORMALS: Normal to inspection, nondistended, normoactive bowel sounds present and non-tender Extremity: COMMON NORMALS: no pedal edema Neuro: COMMON NORMALS: patient oriented x3 Psych: COMMON NORMALS: mental status grossly normal Data : 07/16/22 03:06 07/16/22 03:06 Micro: Microbiology 07/14/22 17:40 Urine Culture - Final Urine,Clean Catch A&P Assessment and plan (1) GI bleed: #Upper GI Bleed #Melanotic stools and hematemasis #Femur fracture status post chente placement July 2021 #Alcohol abuse #Nicotine dependence ? Transfuse goal less than 7 ? Recheck H&H in am ? Protonix 40 twice daily ? Sucralfate 4 times daily ? Clear liquids okayed by general surgery, advance as per surgery - Monitor for alcohol withdrawal.? His last drink was 4 days ago however drinks 1 pint per day. ? I will not started on CIWA protocol at this time and monitor patient for now. ? dc ceftriaxone 2 g daily ? Discussed case with RN, general surgery, girlfriend at bedside - stop normal saline 100 cc/h ? Possibly transfer to floor today. 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
[2022-07-16] MEDS: nicotine 14 mg Patch 1 PATCH TRANSDERMA (16:40)
[2022-07-17] VITALS (15 sets, daily range): BP systolic 113–153; BP diastolic 66–90; PULSE 55–102; RESP 16–22; TEMP 36.4–36.8; O2SAT 96–100
[2022-07-17 04:05] LABS: Basophils # 0.1 10^3/uL (0.0-0.1); Basophils % 0.5 %; Eosinophils # 0.9 10^3/uL (0.0-0.8); Eosinophils % 8.3 %; Hematocrit 23.2 % (42.0-52.0); Hemoglobin 7.6 g/dL (11.7-16.6); Lymphocytes # 1.7 10^3/uL (0.8-4.8); Mean Corpuscular HGB Conc 32.8 g/dL (30.0-36.0); Mean Corpuscular Hemoglobin 30.6 pg (28.0-34.0); Mean Corpuscular Volume 93.5 fl (80-94); Mean Platelet Volume 10.8 fL (7.4-10.4); Monocytes # 1.2 10^3/uL (0.2-0.9); Monocytes % 10.9 %; Neutrophils # 6.63 10^3/uL (1.8-7.7); Neutrophils % 62.5 %; Nucleated Red Blood Cells % 0.2 %; Platelet Count 221 10^3/cmm (130-400); Red Blood Count 2.48 10^6/uL (4.1-5.3); Red Cell Distribution Width 14.9 % (12.1-15.1); White Blood Count 10.6 10^3/uL (4.0-10.0)
[2022-07-17 04:50] LABS: Alanine Aminotransferase 7 U/L (0-41); Albumin Level 2.8 g/dL (3.5-5.2); Alkaline Phosphatase 56 U/L (40-130); Anion Gap 10.5 (5-19); Aspartate Amino Transferase 11 U/L (0-40); Blood Urea Nitrogen 8 mg/dL (6-20); Calcium 8.4 mg/dL (8.5-10.5); Carbon Dioxide 28 mmol/L (22-29); Chloride 99 mmol/L (98-107); Globulin 2.4 g/dL (1.3-4.6); Glomerular Filtration Rate 151.6 mL/min (90-130); Glucose 107 mg/dL (65-115); Osmolality Calculated 277 mOsm/kg (285-295); Potassium 3.5 mmol/L (3.5-5.1); Sodium 134 mmol/L (136-145); Total Bilirubin 0.2 mg/dL (0.15-1.2); Total Protein 5.2 g/dL (6.6-8.7)
[2022-07-17] MEDS: sucralfate 1 gm Tablet PO (06:12)
--- NOTE | 2022-07-17 06:50 | PC.NURSE ---
Bedside report completed with LUCILA Castle
[2022-07-17] MEDS: pantoprazole 40 mg SDV IVP (08:35)
[2022-07-17] MEDS: nicotine 14 mg Patch 1 PATCH TRANSDERMA (08:36)
--- NOTE | 2022-07-17 10:02 | P.DS_ITS ---
Discharge Providers Date of Admission: 07/14/22 13:08 Date of Discharge: July 17, 2022 Attending Provider at Admission: Aimee Boyer MD Attending Provider at Discharge: Ministerio Ray MD Diagnoses at Discharge Discharge Diagnosis (1) GI bleed: Status: Resolved Reason for Visit Reason for Visit: vomiting blood, rectal bleeding Hospital Course Hospital Course Renzo Mcconnell JR. is a 36 year old male with past medical history of femur fracture last year July status post chente placement, nicotine dependence, alcohol abuse presented to the hospital today after having bloody bowel movement and vomiting dark material as per patient.? Patient presented to [facility] for upper GI bleed with black stools and hematemesis,, was transfused a total of 5 units PRBC, underwent EGD, found to have traumatic ulcer of the second part of the duodenum from toothpick impaction, requiring epinephrine injection, tolerated procedure well. Patient was returned to ICU for the next 48 hours, no hemodynamic compromise no recurrent bloody or black stools, hemoglobin has stabilized to 7.6. We will discharge him home with close follow-up with primary care provider in 3 to 4 days for recheck hemoglobin. Will discharge him on 1 month of Protonix 40 twice daily with Carafate twice daily. Patient was advised to abstain from any alcohol consumption. Patient was advised to abstain from any NSAID use. If he were to have any bloody or black stools or bloody vomit. Go to the emergency room immediately. Follow-up with general surgery in 6 to 8 weeks for repeat EGD Physical Exam Const: COMMON NORMALS: no acute distress and patient oriented x3 Resp: COMMON NORMALS: normal respiratory effort, No retractions, No use of accessory muscles and clear to auscultation bilaterally AUSCULTATION: clear to auscultation bilaterally Cardio: COMMON NORMALS: regular rate, regular rhythm, S1 normal heart sound present and S2 normal heart sound present RATE: regular rate RHYTHM: regular rhythm HEART SOUNDS: S1 normal heart sound present and S2 normal heart sound present GI: COMMON NORMALS: Normal to inspection, nondistended, normoactive bowel sounds present and non-tender Extremity: COMMON NORMALS: no pedal edema Neuro: COMMON NORMALS: patient oriented x3 Psych: COMMON NORMALS: mental status grossly normal Discharge Data Studies Completed and Pending Completed Studies During Hospitalization Category Date Time Status CT abdomen pelvis w con* [id number] Stat Cat Scan 07/14/22 09:20 Completed CXRP [XR chest 1V portable [id number]] Routine Exams 07/14/22 23:15 Completed XR chest 1V portable [id number] Stat Exams 07/14/22 14:26 Completed Pending at discharge Category Date Time Status ABO/Rh Type Routine Lab 07/14/22 09:15 Results Complete Blood Count w/Auto AM LABS Lab 07/18/22 04:00 Ordered Complete Blood Count w/Auto AM LABS Lab 07/19/22 04:00 Ordered Complete Crossmatch Routine Lab 07/14/22 09:15 Results Complete Crossmatch Routine Lab 07/14/22 09:48 Results Comprehensive Metabolic Panel AM LABS Lab 07/18/22 04:00 Ordered Comprehensive Metabolic Panel AM LABS Lab 07/19/22 04:00 Ordered FFP [Frozen Plasma FZ <24 1st Cont] Stat Lab 07/14/22 09:15 Results Leukocyte Reduced RBC Stat Lab 07/14/22 09:15 Results Platelets Leukoreduced Irradia Stat Lab 07/14/22 09:15 Results Retype for Patiets ABO/Rh Routine Lab 07/14/22 09:48 Results Sputum Culture and Gram Stain Stat Lab 07/14/22 14:51 Uncollected Type and Screen Routine Lab 07/14/22 09:15 Results Pathology: Surgical [PTH] Routine Pth 07/15/22 08:42 Received Radiology Impressions Abdomen/Pelvis CT 07/14/22 09:20 IMPRESSION: 1. No active GI bleed. 2. Fatty infiltration of the wall of the distal ileum is suspicious for prior recurrent/chronic inflammation. No convincing acute inflammatory process of the distal ileum. Prior Crohn's disease is conceivable. 3. Questionable mild thickening of wall of transverse colon versus incomplete distension may represent a mild colitis either infectious or inflammatory. Chest X-Ray 07/14/22 23:15 IMPRESSION: Stable right central line with tip over the proximal right atrium. Laboratory Results WBC 10.6 10^3/uL (4.0-10.0) H 07/17/22 03:02 RBC 2.48 10^6/uL (4.1-5.3) L 07/17/22 03:02 Hgb 7.6 g/dL (11.7-16.6) L 07/17/22 03:02 Hct 23.2 % (42.0-52.0) L 07/17/22 03:02 MCV 93.5 fl (80-94) 07/17/22 03:02 MCH 30.6 pg (28.0-34.0) 07/17/22 03:02 MCHC 32.8 g/dL (30.0-36.0) 07/17/22 03:02 RDW 14.9 % (12.1-15.1) 07/17/22 03:02 Plt Count 221 10^3/cmm (130-400) 07/17/22 03:02 MPV 10.8 fL (7.4-10.4) H 07/17/22 03:02 Neut % (Auto) 62.5 % 07/17/22 03:02 Lymph % (Auto) 16.0 % 07/17/22 03:02 [place] % (Auto) 10.9 % 07/17/22 03:02 Eos % (Auto) 8.3 % 07/17/22 03:02 Baso % (Auto) 0.5 % 07/17/22 03:02 Neut # (Auto) 6.63 10^3/uL (1.8-7.7) 07/17/22 03:02 Lymph # (Auto) 1.7 10^3/uL (0.8-4.8) 07/17/22 03:02 [place] # (Auto) 1.2 10^3/uL (0.2-0.9) H 07/17/22 03:02 Eos # (Auto) 0.9 10^3/uL (0.0-0.8) H 07/17/22 03:02 Baso # (Auto) 0.1 10^3/uL (0.0-0.1) 07/17/22 03:02 Nucleated RBC % (auto) 0.2 % 07/17/22 03:02 Nucleated RBCs # 0.0 /100WBC 07/17/22 03:02 PT 14.50 SECONDS (12.1-14.9) 07/14/22 09:15 INR 1.10 (0.8-1.2) 07/14/22 09:15 APTT 27.4 SECONDS (23.9-36.7) 07/14/22 09:15 Sodium 134 mmol/L (136-145) L 07/17/22 03:02 Potassium 3.5 mmol/L (3.5-5.1) 07/17/22 03:02 Chloride 99 mmol/L (98-107) 07/17/22 03:02 Carbon Dioxide 28 mmol/L (22-29) 07/17/22 03:02 Anion Gap 10.5 (5-19) 07/17/22 03:02 BUN 8 mg/dL (6-20) 07/17/22 03:02 Creatinine 0.6 mg/dL (0.7-1.2) L 07/17/22 03:02 GFR Calculation 151.6 mL/min (90-130) H 07/17/22 03:02 Glucose 107 mg/dL (65-115) 07/17/22 03:02 POC Glucose 112 mg/dL (70-110) H 07/15/22 05:17 Calculated Osmolality 277 mOsm/kg (285-295) L 07/17/22 03:02 Calcium 8.4 mg/dL (8.5-10.5) L 07/17/22 03:02 Magnesium 1.9 mg/dL (1.7-2.3) 07/15/22 05:15 Total Bilirubin 0.2 mg/dL (0.15-1.2) 07/17/22 03:02 AST 11 U/L (0-40) 07/17/22 03:02 ALT 7 U/L (0-41) 07/17/22 03:02 Alkaline Phosphatase 56 U/L (40-130) 07/17/22 03:02 Ammonia 15 umol/L (16-60) L 07/14/22 09:15 Total Protein 5.2 g/dL (6.6-8.7) L 07/17/22 03:02 Albumin 2.8 g/dL (3.5-5.2) L 07/17/22 03:02 Globulin 2.4 g/dL (1.3-4.6) 07/17/22 03:02 Triglycerides 148 mg/dL (0-150) 07/14/22 09:27 Cholesterol 114 mg/dL (0-200) 07/14/22 09:27 LDL Cholesterol, Calc 60 mg/dL (50-129) 07/14/22 09:27 HDL Cholesterol 24 mg/dL (60-100) L 07/14/22 09: LDL/HDL Ratio 2.50 RATIO (0.00-3.22) 07/14/22 09: Cholesterol/HDL Ratio 4.75 mg/dL (1.0-5.00) 07/14/22 09:27 Urine Color Yellow (Yellow) 07/14/22 12:52 Urine Appearance Clear (CLEAR) 07/14/22 12:52 Urine pH 5 (5-7) 07/14/22 12:52 Ur Specific [place] 1.020 (1.005-1.030) 07/14/22 12:52 Urine Protein Trace (Negative) 07/14/22 12:52 Urine Glucose (UA) Norm (Normal) 07/14/22 12:52 Urine Ketones Negative (Negative) 07/14/22 12:52 Urine Blood Neg (Negative) 07/14/22 12:52 Urine Nitrate Negative (Negative) 07/14/22 12:52 Urine Bilirubin Neg (Negative) 07/14/22 12:52 Urine Urobilinogen Norm mg/dL (Negative) 07/14/22 12:52 Ur Leukocyte Esterase Negative (Negative) 07/14/22 12:52 Urine RBC None /hpf (0-2) 07/14/22 12:52 Urine WBC 0-4 /hpf (0-5) H 07/14/22 12:52 Ur Squamous Epith Cells None /hpf (0-5) 07/14/22 12:52 Amorphous Sediment Not Reportable 07/14/22 12:52 Urine Bacteria Trace /hpf (NONE) 07/14/22 12:52 Urine Opiates Screen Negative ng/mL (Negative) 07/14/22 17:40 Ur Barbiturates Screen Negative ng/mL (Negative) 07/14/22 17:40 Ur Phencyclidine Scrn Negative ng/mL (Negative) 07/14/22 17:40 Ur Amphetamines Screen Negative ng/mL (Negative) 07/14/22 17:40 U Benzodiazepines Scrn Negative ng/mL (Negative) 07/14/22 17:40 Urine Cocaine Screen Negative ng/mL (Negative) 07/14/22 17:40 U Marijuana (THC) Screen Positive ng/mL (Negative) H 07/14/22 17:40 Hepatitis A IgM Ab Non-reactive (Nonreactive) 07/14/22 09:27 Hep Bs Antigen Non-reactive (Nonreactive) 07/14/22 09:27 Hep Bs Antibody 3.5 (11.5-1000) L 07/14/22 09:27 Hep B Core Total Ab Non-reactive (Nonreactive) 07/14/22 09:27 Hepatitis C Antibody Non-reactive (Nonreactive) 07/14/22 09:27 Blood Type O Positive 07/14/22 09:15 Rho(D) Type Positive 07/14/22 09:15 Antibody Screen Negative 07/14/22 09:15 Crossmatch See Detail 07/14/22 09:15 Reaction Clerical Check No discrepancy 07/14/22 23:05 Pre-Trans Blood Type Op 07/14/22 23:05 Pre-Trans Urine RBC No 07/14/22 23:05 Post-Trans Blood Type O Positive 07/14/22 23:05 Post-Tx Visible Hemolys No hemolysis 07/14/22 23:05 Post-Trans MAXIMO Negative 07/14/22 23:05 Vitals Last Vital Signs Temp 97.6 F 07/17/22 07:44 Pulse 81 07/17/22 07:44 Resp 19 H 07/17/22 07:44 BP 113/90 07/17/22 07:44 Pulse Ox 97 07/17/22 07:30 O2 Del Method 07/17/22 07:30 Discharge Plan Discharge Patient Disposition: Home Condition: Stable Prescriptions: New sucralfate 1 gram Tablet 1 g PO AC&BEDTIME 30 Days Qty: 60 0RF pantoprazole [Protonix] 40 mg tablet,delayed release (DR/EC) 40 mg PO BID 30 Days Qty: 60 0RF Discontinued omeprazole 20 mg capsule,delayed release(DR/EC) 20 mg PO DAILY 56 Days Qty: 60 0RF cetirizine 10 mg Tablet 10 mg PO DAILY PRN (Reason: Allergy Symptoms) Discharge Orders: Discharge Order (Routine); Ordered 07/17/22 Ordered By: Ministerio Ray Referrals: Juancho Cain MD [Physician] - 1 month Discharge Diet: Advance as tolerated Discharge Activity: Resume usual activity Patient Instructions: Sucralfate (By mouth), Pantoprazole (By mouth), GI Discharge Instructions, Opioid Safety Activity Restrictions/Additional Instructions: -AVOID ALL NSAID, INCLUDING BUT NOT LIMITED TO ALEVE, NAPROXEN, MELOXICAM, IBUPROFEN -IF YOU DEVELOP BLOODY OR BLACK STOOL GO TO EMERGENCY ROOM -SEE PRIMARY CARE IN 3-4 DAYS TO RECHECK HEMOGLOBIN Discharge Attestations Time Spent in Discharge Care*: less than 30 min Quality Metrics Clinical Quality Measures [ No reported AMI, CVA or VTE this stay] Coding Level of Care Code Acute [facility] note Diagnoses GI bleed K92.2
--- NOTE | 2022-07-17 10:30 | PC.NURSE ---
Dr Ray called to clarify discharge med Sucralfate 1 gm AC and bedtime 30 days. Quantity 60. Pt to take twice a day, AC and bedtime. 60 quantity correct.
--- NOTE | 2022-07-17 11:20 | PC.NURSE ---
Discharge instructions provided and discussed with pt and . All questions answered. Home meds have been delivered by [facility] pharmacy. Pt amulated out of unit.
== END 2022-07-17 11:20 | disposition home or self-care (01) | DRG 378 ==
LOC: ER 09:30 → ICU 12:43
PROVIDERS: Surgery; Admitting Provider Internal Medicine; Emergency Provider Family Medicine; Visit Provider Family Medicine
PROC: 0DJ08ZZ Inspection of Upper Intestinal Tract, Via Natural or Artificial Opening Endoscopic (ICD-10-PCS; CPT 43235; principal; 2022-07-15 08:00)
PROC: 0DC98ZZ Extirpation of Matter from Duodenum, Via Natural or Artificial Opening Endoscopic (ICD-10-PCS; 2022-07-15 08:00)
DX: K26.4 Chronic or unspecified duodenal ulcer with hemorrhage (principal); K31.5 Obstruction of duodenum; D50.0 Iron deficiency anemia secondary to blood loss (chronic); T18.3XXA Foreign body in small intestine, initial encounter; X58.XXXA Exposure to other specified factors, initial encounter; F10.10 Alcohol abuse, uncomplicated; F17.210 Nicotine dependence, cigarettes, uncomplicated
CPT/HCPCS: 36416; 36430; 36556; 36592; 43236; 43247; 71045; 74177; 80048; 80053; 80061; 80306; 80503; 81001; 82140; 82962; 83735; 85014; 85018; 85025; 85610; 85730; 86705; 86706; 86709; 86803; 86850; 86900; 86920; 86927; 87086; 87340; 88300; 93005; 96365; 96375; 99285; C9113; J0171; J0696; J1200; J2405; J2704; J3490; J7030; P9016; P9017; P9037; P9040; Q9967

== ENCOUNTER → 2022-11-01 10:16 | Outpatient (BNVA) | payer BC, MEDICAID, SELFPAY | PROVIDERS: PCP Family Medicine; Visit Provider Family Medicine | DX: F10.90 Alcohol use, unspecified, uncomplicated (principal) | CPT/HCPCS: 80053; 80061; 85025 ==

== ENCOUNTER → 2024-06-25 15:00 | Outpatient (BNVA) | payer OTHER, SELFPAY | PROVIDERS: PCP Family Medicine; Visit Provider Nurse Practitioner Psychiatric/Mental Health | DX: F41.1 Generalized anxiety disorder (principal); F10.20 Alcohol dependence, uncomplicated | CPT/HCPCS: 80061; 83036 ==

== ENCOUNTER → 2025-06-18 13:32 | Outpatient (BNVA) | payer OTHER, SELFPAY ==
[2025-01-20 07:22] VITALS: BP 135/94; BMI 23.4
== END ==
PROVIDERS: PCP Family Medicine; Visit Provider Nurse Practitioner Psychiatric/Mental Health
DX: F31.9 Bipolar disorder, unspecified (principal); F10.20 Alcohol dependence, uncomplicated; F41.1 Generalized anxiety disorder
CPT/HCPCS: 80061; 83036